=== PATIENT | female | born 1990 | race Caucasian/White ===

== ENCOUNTER → 2016-09-01 | Outpatient (CLI) | payer OTHER ==
[2016-09-01 17:43] LABS: BILIRUBIN,URINE NEGATIVE (NEG); COLOR,URINE YELLOW; GLUCOSE, URINE (UA) NEGATIVE (NEG); NITRATE,URINE NEGATIVE (NEG); OCCULT BLOOD,URINE NEGATIVE (NEG); PROTEIN,URINE NEGATIVE (NEG); UROBILINOGEN,URINE 0.2 mg/dL (0.2)
[2016-09-01 17:44] LABS: CLARITY,URINE SLIGHTLY CLOUDY (CLEAR); URINE SAMPLE TYPE VOIDED SPECIMEN
[2016-09-01 17:45] LABS: BACTERIA,URINE MODERATE
== END ==
LOC: MOB LAB 16:25
PROVIDERS: ATTEND Student in an Organized Health Care Education/Training Program
DX: R35.0 Frequency of micturition (principal)
CPT/HCPCS: 81001; 87077; 87088; 87186

== ENCOUNTER 2018-05-26 18:55 | Observation (INO) ==
[2018-05-26 19:19] LABS: Hematocrit [HCT] 38.1 % (37.0-47.0); Hemoglobin [HGB] 12.9 g/dL (12.0-16.0); MEAN CORPUSCULAR HEMOGLOBIN 31.3 PG (27-31); MEAN CORPUSCULAR HGB CONC 33.9 g/dL (33-37); MEAN CORPUSCULAR VOLUME 92.5 FL (81-99); MEAN PLATELET VOLUME 10.5 FL (7.4-12.2); RED BLOOD COUNT 4.12 10^6/uL (4.20-5.40)
[2018-05-26 19:30] LABS: BLOOD UREA NITROGEN 7 mg/dL (7-22); SERUM ALBUMIN 4.2 g/dL (3.5-4.8); Uric Acid 5.1 mg/dl (2.5-6.2)
[2018-05-26 19:32] LABS: CLARITY,URINE CLEAR (CLEAR); COLOR,URINE YELLOW (Y); GLUCOSE, URINE (UA) NEGATIVE (NEG); OCCULT BLOOD,URINE NEGATIVE (NEG); PH,URINE 5.5 (5.0-8.5); PROTEIN,URINE NEGATIVE (NEG); URINE SAMPLE TYPE VOIDED SPECIMEN
[2018-05-26 19:33] LABS: BILIRUBIN,URINE NEGATIVE (NEG); UROBILINOGEN,URINE 0.2 EU/dL (0.2)
[2018-05-26] MEDS ORDERED: CALCIUM CARBONATE 500 MG (TUMS) CHEWABLE TABLET PO PRN (20:04)
[2018-05-26] MEDS ORDERED: Ondansetron ODT Tab 4 MG TAB PO PRN (20:04)
[2018-05-26] MEDS ORDERED: ONDANSETRON 4 MG/2 ML VIAL IVP PRN (20:04)
[2018-05-26] MEDS ORDERED: LIDOCAINE W/ SODIUM BICARB 0.5 ML SYR SUBD PRN (20:04)
--- NOTE | 2018-05-26 20:10 | OB.PROGRES ---
Date of Service: 05/26/18 Time of Service: 20:08 Interval History: 28 yo at 36 3/7 weeks gestation presented to triage with visual disturbances. She was seen in clinic today for her routine visit. Her initial BP in clinic was 138/98, first elevated pressure she has had. On repeat it was 125/88. Gestational HTN labs were drawn and unremarkable, urine pr:cr 0.2. She was given strict return precautions. 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 She went to the nurses station and her BP was 146/98. Unfortunately then hospital's land line is down, she had tried calling and ultimately had her mother in law stop by the ER and ask what to do. She came directly here. Upon arrival her BP was 139/85. She denied LOWERY, RUQ pain, decreased FM, loss of fluid, vaginal bleeding. She was still just feeling off. W hen I walked into the room she reported a wave of this abnormal feeling again with oscillating vision, blue spots. She does have a h/o migraines, does get an aura, but states this is different than she had ever experienced. PMH - hypothyroid course uncomplicated. GBS collected today, pending. Normal 1 hour OGTT. no PSH FH - maternal uncle spina bifida, CVA, HTN, HLD SH - denies etoh, tobacco, illicit drug use. Works at [employer]. Objective - Cervical Exam [place]: uterine irritability Heart Rate: baseline 140, moderate variability, accels, no decels Heart Rate Interpretation Category: Category I - Labs CBC and BMP: 05/26/18 19:19 05/26/18 19:18 - Vital Signs Last Taken Vital Signs: Vital Signs - Last Taken Temperature 98.1 F 05/26/18 18:57 Pulse Rate 75 05/26/18 18:57 Respiratory Rate 16 05/26/18 18:57 Blood Pressure 139/85 05/26/18 18:57 Pulse Ox 100 05/26/18 18:57 Assessment and Plan - Patient Problems (1) Preeclampsia Current Visit: Yes Status: Acute Code(s): O14.90 - Unspecified pre- eclampsia, unspecified trimester Qualifiers: Trimester: third trimester Qualified Code(s): O14.93 - Unspecified pre- eclampsia, third trimester Support Text: 28 yo at 36 3/7 weeks gestation with preeclampsia (BP 138/98 in clinic this afternoon and 138/96 on L&D, spot urine pr:cr 0.5). Patient with possible severe feature of visual disturbance that comes and goes, described as oscillating with blue dots. No LOWERY, RUQ pain, reflexes 2+. Currently asymptomatic again with normal pressures. Will go ahead and give tylenol 1000 mg to see if this is really a migraine aura and stop her symptoms. Low threshold to start mag for severe features if neuro symtpoms recur. Will pass off to Dr. Mcbride for the evening. GBS pending.
[2018-05-26] MEDS: Lactated Ringers 1,000 ML PRIMARY IV SCH ×2 (20:15→22:15)
[2018-05-26] MEDS ORDERED: ACETAMINOPHEN 325 MG TABLET PO SCH (20:15)
[2018-05-26] MEDS ORDERED: ACETAMINOPHEN 500 MG TABLET PO ONE (20:23)
[2018-05-26] MEDS ORDERED: ACETAMINOPHEN 500 MG TABLET PO SCH (20:30)
[2018-05-27] MEDS ORDERED: ACETAMINOPHEN 500 MG TABLET PO ONE (02:08)
[2018-05-27] MEDS: Lactated Ringers 1,000 ML PRIMARY IV SCH (03:21)
[2018-05-27] MEDS ORDERED: ACETAMINOPHEN 500 MG TABLET PO PRN (04:21)
[2018-05-27 05:29] LABS: Hematocrit [HCT] 34.8 % (37.0-47.0); Hemoglobin [HGB] 11.4 g/dL (12.0-16.0); MEAN CORPUSCULAR HEMOGLOBIN 30.5 PG (27-31); MEAN CORPUSCULAR HGB CONC 32.8 g/dL (33-37); MEAN PLATELET VOLUME 10.4 FL (7.4-12.2); RED BLOOD COUNT 3.74 10^6/uL (4.20-5.40)
[2018-05-27 05:50] LABS: BLOOD UREA NITROGEN 5 mg/dL (7-22); BUN/CREATININE RATIO 8.33 (6-20); SERUM ALBUMIN 3.2 g/dL (3.5-4.8); Uric Acid 5.4 mg/dl (2.5-6.2)
[2018-05-27] MEDS ORDERED: Prenatal Multivitamin Tab 1 TAB TAB PO SCH (09:00)
[2018-05-27] MEDS: BETAMET ACET/BETAMET NA PH 6 MG/1 ML - 5 ML IM SCH (09:58)
--- NOTE | 2018-05-27 09:59 | DI ---
US OB Biophys Profile w/NST,05/27/2018 9:23 AM: Clinical History: Preeclampsia Previous Exam: March 01, 2018 Findings: Multiple transabdominal grayscale and color Doppler sonographic images are obtained through the pelvi s and demonstrate a single live intrauterine gestation in vertex presentation. Detected Doppler heart tones measure 153 beats per minute. Amniotic fluid index measures 16.1 cm. There is normal tone and normal motion. Biophysical profile measured 8/8. Impression: Single live intrauterine gestation with a normal biophysical profile (8/8).
--- NOTE | 2018-05-27 10:01 | DI ---
US OB , Limited,05/27/2018 9:19 AM: Clinical History: Preeclampsia. Previous Exam: None at this facility. Findings: Images are obtained as part growth survey demonstrating a biparietal diameter, head circumferen ce, abdominal circumference and femur length corresponding with an estimated gestational age of 39 we eks 2 days. This is 2 weeks 5 days ahead of schedule. The abdominal circumference measured at greater than the 98th percentile. Estimated weight is 3767 g (98th percentile). Impression: A single live intrauterine gestation with size greater than dates.
--- NOTE | 2018-05-27 18:21 | OB.PROGRES ---
Date of Service: 05/27/18 Time of Service: 18:18 Interval History: Did have an episode of "slowed vision" that passed quickly. BPs have been ok though through the day. Abdominal pain is resolved. BPP earlier 01/05. EFW 98%ile. Objective - Cervical Exam Cervical Exam: cl/thick/-4 Heart Rate Interpretation Category: Category I - Labs CBC and BMP: 05/27/18 04:22 05/27/18 04:22 - Vital Signs Last Taken Vital Signs: Vital Signs - Last Taken Temperature 98.2 F 05/27/18 17:00 Pulse Rate 92 05/27/18 17:00 Respiratory Rate 18 05/27/18 17:00 Blood Pressure 131/79 05/27/18 17:00 Pulse Ox 98 05/27/18 17:00 Assessment and Plan - Patient Problems (1) Preeclampsia Current Visit: Yes Status: Acute Code(s): O14.90 - Unspecified pre- eclampsia, unspecified trimester Qualifiers: Trimester: third trimester Qualified Code(s): O14.93 - Unspecified pre- eclampsia, third trimester Support Text: Awaiting 24 hour urine protein Plan for 2nd beta methasone dose tomorrow morning Likely induction at 37 weeks if no severe features Intermittent monitoring through the night
[2018-05-27 18:35] VITALS: O2SAT 98
[2018-05-27 20:02] LABS: 24 HOUR URINE TOTAL VOLUME 3625 ML
[2018-05-28 08:57] LABS: Hematocrit [HCT] 35.4 % (37.0-47.0); Hemoglobin [HGB] 12.2 g/dL (12.0-16.0); MEAN CORPUSCULAR HGB CONC 34.5 g/dL (33-37); MEAN CORPUSCULAR VOLUME 92.9 FL (81-99); MEAN PLATELET VOLUME 10.5 FL (7.4-12.2); RED BLOOD COUNT 3.81 10^6/uL (4.20-5.40)
[2018-05-28 09:04] VITALS: RESP 16
[2018-05-28 09:07] VITALS: BP 107/59; TEMP 98
[2018-05-28 09:16] LABS: BLOOD UREA NITROGEN 4 mg/dL (7-22); BUN/CREATININE RATIO 6.66 (6-20); SERUM ALBUMIN 3.8 g/dL (3.5-4.8); Uric Acid 5.7 mg/dl (2.5-6.2)
--- NOTE | 2018-05-28 09:24 | OB.PROGRES ---
Date of Service: 05/28/18 Time of Service: 09:19 Interval History: 28 yo at 36 5/7 weeks gestation. Denies any concerns this morning. No LOWERY, visual disturbances. She did get some rest last night. Objective - Cervical Exam Heart Rate Interpretation Category: Category I - Labs CBC and BMP: 05/28/18 08:50 05/27/18 04:22 Additional Lab Results: 05/27/18 19:30 U Tot Protein 24h, Calc 543 H - Vital Signs Last Taken Vital Signs: Vital Signs - Last Taken Temperature 98 F 05/28/18 09:00 Pulse Rate 79 05/28/18 09:00 Respiratory Rate 16 05/28/18 09:00 Blood Pressure 107/59 05/28/18 09:00 Pulse Ox 98 05/28/18 09:00 Assessment and Plan - Patient Problems (1) Preeclampsia Current Visit: Yes Status: Acute Code(s): O14.90 - Unspecified pre- eclampsia, unspecified trimester Qualifiers: Trimester: third trimester Qualified Code(s): O14.93 - Unspecified pre- eclampsia, third trimester Support Text: 28 yo at 36 5/7 weeks gestation who presented on evening with visual disturbances which have since resolved. She had elevated pressures in the clinic earlier that day and again at presentation to the hospital. She did have a 24 hour urine protein that came back at 543mg last night. She is currently asymptomatic. Without current severe features we will plan to start her cervical ripening on Wednesday evening. She will get her second dose of betamethasone at 10 am today. She is amenable to staying in town (as they live 2 hours away in [place]), her and her will stay the night at [facility]. Plan to return tomorrow evening at 7 pm for cervical ripening. Strict return precautions for LOWERY, visual disturbance, etc. GBS negative
[2018-05-28] MEDS: BETAMET ACET/BETAMET NA PH 6 MG/1 ML - 5 ML IM SCH (10:01)
--- NOTE | 2018-05-28 13:44 | OB.PROGRES ---
Date of Service: 05/27/18 Time of Service: 08:00 Interval History: Patient did well overnight. This morning upon me going in had another brief wave of "slow vision". Also with LOWERY this morning, just given tylenol. Objective - Cervical Exam Cervical Exam: cl/thick/high Heart Rate Interpretation Category: Category I - Labs CBC and BMP: 05/28/18 08:50 05/28/18 08:50 - Vital Signs Last Taken Vital Signs: BP - 94-110/48-68 overnight Assessment and Plan - Patient Problems (1) Preeclampsia Status: Acute Code(s): O14.90 - Unspecified pre-eclampsia, unspecified trimester Qualifiers: Trimester: third trimester Qualified Code(s): O14.93 - Unspecified pre- eclampsia, third trimester Support Text: 28 yo at 36 4/7 weeks gestation with preeclampsia admitted last night for observation. 24 hour urine protein collection in process. She did well overnight but woke up with a LOWERY this morning, waiting to see if it responds to Tylenol. Will go ahead and give steroids as she will likely require induction at 37 weeks gestation. BBP and growth us ordered. Labs remain unremarkable otherwise. GBS pending still.
== END 2018-05-28 10:44 | disposition home or self-care (01) ==
LOC: OBIP 18:55 → OBOP 18:55
PROVIDERS: ADMIT Student in an Organized Health Care Education/Training Program; ATTEND Student in an Organized Health Care Education/Training Program

== ENCOUNTER 2018-05-29 17:13 | Inpatient (IN) ==
[2018-05-29] MEDS ORDERED: FAMOTIDINE 20 MG/2 ML VIAL IVP PRN ×2 (17:28)
[2018-05-29] MEDS ORDERED: LIDOCAINE W/ SODIUM BICARB 0.5 ML SYR SUBD PRN (17:28)
[2018-05-29] MEDS ORDERED: CITRIC ACID/SODIUM CITRATE 30 ML CUP PO PRN (17:28)
[2018-05-29] MEDS ORDERED: CefOXitin Inj 2 GM in Sodium Chloride 0.9% 100 ML IV PRN (17:28)
[2018-05-29] MEDS ORDERED: Carboprost Inj 250 MCG/ML AMP IM PRN (17:28)
[2018-05-29] MEDS ORDERED: Metoclopramide Inj 10 MG/2 ML VIAL IV PRN (17:28)
[2018-05-29] MEDS ORDERED: MISOPROSTOL 200 MCG TABLET RECTAL PRN (17:28)
[2018-05-29] MEDS ORDERED: fentaNYL Inj 100 MCG/2 ML VIAL IV PRN (17:28)
[2018-05-29] MEDS ORDERED: ONDANSETRON 4 MG/2 ML VIAL IVP PRN (17:28)
[2018-05-29] MEDS ORDERED: OXYTOCIN 10 UNIT/1 ML IM PRN (17:28)
[2018-05-29] MEDS ORDERED: Lidocaine 1% 10 MG/ML - 20 ML VIAL SUBCUT PRN (17:28)
[2018-05-29] MEDS ORDERED: CALCIUM CARBONATE 500 MG (TUMS) CHEWABLE TABLET PO PRN (17:28)
[2018-05-29] MEDS ORDERED: METHYLERGONOVINE MALEATE 0.2 MG/1 ML VIAL IM PRN (17:28)
[2018-05-29] MEDS ORDERED: TERBUTALINE SULFATE 1 MG/1 ML SDV SUBCUT PRN (17:28)
[2018-05-29] MEDS ORDERED: Oxytocin 20 Units + LR 20 UNIT/1,000 ML BAG IV SCH (17:30)
[2018-05-29] MEDS ORDERED: Naloxone Inj 0.01 MG in Sodium Chloride 0.9% vial 1 ML IVP PRN (17:43)
[2018-05-29] MEDS ORDERED: Nalbuphine Inj 20 MG/ML Ampule IVP PRN (17:43)
[2018-05-29] MEDS ORDERED: BUTORPHANOL TARTRATE 2 MG/1 ML VIAL IVP PRN (17:43)
[2018-05-29] MEDS ORDERED: ePHEDrine Inj 50 MG/ML AMP IVP PRN (17:43)
[2018-05-29] MEDS ORDERED: LIDOCAINE HCL 2 % 10 ML JELLY URO-JECT TOPICAL PRN (17:43)
[2018-05-29] MEDS ORDERED: NALOXONE 0.4 MG/1 ML VIAL IVP PRN (17:43)
[2018-05-29] MEDS ORDERED: Phenylephrine Inj 50 MCG in Sodium Chloride 0.9% vial 0.5 ML IVP PRN (17:43)
[2018-05-29] MEDS ORDERED: diphenhydrAMINE 50 MG/1 ML VIAL IVP PRN (17:43)
[2018-05-29 18:12] LABS: Hemoglobin [HGB] 12.7 g/dL (12.0-16.0); MEAN CORPUSCULAR HEMOGLOBIN 32.2 PG (27-31); MEAN CORPUSCULAR HGB CONC 32.6 g/dL (33-37); MEAN CORPUSCULAR VOLUME 98.7 FL (81-99); MEAN PLATELET VOLUME 10.6 FL (7.4-12.2); RED BLOOD COUNT 3.95 10^6/uL (4.20-5.40)
[2018-05-29 18:25] LABS: BLOOD UREA NITROGEN 13 mg/dL (7-22); BUN/CREATININE RATIO 21.66 (6-20); Uric Acid 5.3 mg/dl (2.5-6.2)
[2018-05-29] MEDS: Lactated Ringers-OB Dept 1,000 ML PRIMARY IV SCH (18:30)
--- NOTE | 2018-05-29 19:27 | OB.PROGRES ---
Date of Service: 05/29/18 Time of Service: 19:19 Interval History: 28 yo at 36 6/7 weeks gestation with preeclampsia here for IOL. course uncomplicated until when she started having elevated pressures and presented with concerns for possible severe features. She was observed for 2 nights. A 24 hour urine protein was collected and 543 mg. She received a course of steroids. She has been staying at [facility] by the hospital as she lives a couple of hours away in [place], [place]. She presented tonight feeling lightheaded again, but feels better now after eating. Most recent growth u/s was Wednesday, Estimated weight is 3767 g (98th percentile). No h/o STIs PMH - hypothyroid, HAs PSH - none FH - Maternal uncle spina bifida, CVAs in mother and grandfather, HTN/HLD - mot her, etoh problems in father and brother SH - Denies etoh, tobacco, illicit drug use Objective - Cervical Exam Cervical Exam: cl/thick/high, posterior and to patient L, firm [place]: no contractions Heart Rate: baseline 130, moderate variability, accels, no decels Heart Rate Interpretation Category: Category I - Labs CBC and BMP: 05/29/18 17:52 05/29/18 17:52 - Vital Signs Last Taken Vital Signs: Vital Signs - Last Taken Temperature 98.2 F 05/29/18 17:56 Pulse Rate 76 05/29/18 17:56 Respiratory Rate 16 05/29/18 17:56 Blood Pressure 124/7 05/29/18 17:56 Pulse Ox 97 05/29/18 17:56 Assessment and Plan - Patient Problems (1) Preeclampsia Current Visit: No Status: Acute Code(s): O14.90 - Unspecified pre-eclampsia, unspecified trimester Qualifiers: Support Text: 28 yo at 36 6/7 weeks gestation with preeclampsia, admitted for cervical ripening. Will start with 25 mcg of cytotec pv, repeat q4h if not britt too frequently GBS negative Close observation [facility]
[2018-05-29] MEDS: Misoprostol Tab 100 MCG TAB VAGINAL SCH (19:30)
[2018-05-29] MEDS ORDERED: ACETAMINOPHEN 500 MG TABLET PO PRN (19:49)
[2018-05-30] MEDS ORDERED: Oxytocin 20 Units + LR 20 UNIT/1,000 ML BAG IV SCH (02:45)
[2018-05-30] MEDS: Misoprostol Tab 100 MCG TAB VAGINAL SCH ×4 (03:24→15:33)
[2018-05-30] MEDS: Lactated Ringers-OB Dept 1,000 ML PRIMARY IV SCH ×2 (06:32→09:56)
--- NOTE | 2018-05-30 08:16 | OB.PROGRES ---
Date of Service: 05/30/18 Time of Service: 08:09 Interval History: 28 yo at 37 0/7 weeks gestation admitted last night for IOL for preeclampsia. She received 1 dose of 25 mcg cytotec pv but then was britt too frequently for another dose. Low dose pitocin was started at 0300. She is feeling her contractions. She does not have a LOWERY, she did not have any further spells of slowed vision/lightheadedness/flushing. Objective - Cervical Exam Cervical Exam: closed/20/-3, posterior, moderate [place]: q2-5 mins Heart Rate: baseline 140, mod fazal, +accels, no decels Heart Rate Interpretation Category: Category I - Labs CBC and BMP: 05/29/18 17:52 05/29/18 17:52 - Vital Signs Last Taken Vital Signs: Vital Signs - Last Taken Temperature 97.6 F 05/30/18 00:00 Pulse Rate 59 L 05/30/18 06:00 Respiratory Rate 18 05/29/18 18:30 Blood Pressure 102/55 05/30/18 06:00 Pulse Ox 98 05/30/18 06:00 Assessment and Plan - Patient Problems (1) Preeclampsia Current Visit: No Status: Acute Code(s): O14.90 - Unspecified pre-eclampsia, unspecified trimester Qualifiers: Support Text: 28 yo at 37 0/7 weeks gestation -IOL for preeclampsia, blood pressures have been good -S/p cytotec 25mcg pv, britt too frequently for more, on pitocin 1 mU for cervical ripening -Attempted cook catheter placement but not successful with getting in past the internal os -GBS negative -Continue close observation
[2018-05-30] MEDS ORDERED: Magnesium Sulfate 4gm (Premix) 4 GM/100 ML BAG IV ONE ×2 (16:58→17:04)
[2018-05-30] MEDS ORDERED: CALCIUM GLUCONATE 100 MG/1 ML - 10 ML IVP PRN (16:58)
[2018-05-30] MEDS ORDERED: Magnesium Sulfate (Premix) 20 GM/500 ML BAG IV SCH (17:00)
[2018-05-30] MEDS ORDERED: CALCIUM GLUCONATE 100 MG/1 ML - 10 ML ONE (17:04)
[2018-05-30] MEDS ORDERED: Magnesium Sulfate (Premix) 20 GM/500 ML BAG IV ONE (17:04)
--- NOTE | 2018-05-30 17:05 | DCSUMMARY ---
Hospitalization Summary Admit Date: 05/29/18 Discharge Date: 05/30/18 Primary Diagnosis:: Preeclampsia with severe feature, 37 0/7 weeks gestation Hospital Course: 28 yo at 37 0/7 weeks gestation admitted last night for induction. She had had an uneventful until when she had an elevated pressure in clinic. After returning to [place], [place] she started feeling lightheaded, flushed, "slowed vision". She was observed over the weekend with rare episodes, given steroids, last dose was Wednesday at 10 am. She returned last night to start her induction. She received 1 dose of 25 mcg cytotec pv, was then britt too frequently to redose. She was on low dose pitocin for cervical ripening until about noon. Unfortunately we had 2 deliveries about that time and both babies are currently in our critical care nursery. We have no further r espiratory support if needed. I discussed the case with MFM Dr. Sims in [place], [place] who felt these episodes sounded like vasospasm from preeclampsia and recommended delivery and starting magnesium. Unfortunately the weather is not optimal for flying her to [place]. I spoke with ALIA Gomez at [facility] who has graciously agreed to accept this patient in transfer. She will transfer via ambulance with an OB nurse monitoring continuously. Exam - Vitals Vital Signs: Vital Signs Temperature 97.6 F Temperature Source Oral Pulse Rate [Pulse Oximeter] 59 Respiratory Rate 18 Blood Pressure [Right Arm] 102/55 Pulse Ox 97 Oxygen Delivery Method Room Air Height 5 ft 5 in Weight 155 lb 8 oz - General General Appearance: No Acute Distress - Head Head Exam: Normal Inspection - Eye Eye Exam: POSITIVE: Normal Appearance - Respiratory Respiratory Exam: POSITIVE: Clear to Auscultation - Bilaterally - Cardiovascular Cardiovascular Exam: POSITIVE: RRR - Neurological Neurological Exam: POSITIVE: Alert, Oriented x 3, Reflexes Normal, Moves All Extremities Equally, No Clonus - Psychiatric Psychiatric Exam: POSITIVE: Normal Affect, Normal Mood - Integumentary Integumentary Exam: POSITIVE: Normal Color Data Peritnent Studies: Selected Entries 05/29/18 17:40 05/29/18 18:30 05/30/18 02:00 Blood Pressure [Right Arm] 118/76 124/74 112/67 05/30/18 03:30 05/30/18 04:30 05/30/18 05:00 Blood Pressure [Right Arm] 101/57 95/56 106/56 05/30/18 05:30 05/30/18 06:00 Blood Pressure [Right Arm] 114/71 102/55 05/28/18 05/29/18 05/29/18 08:50 17:52 17:52 WBC 13.76 H 13.74 H Hgb 12.2 12.7 Hct 35.4 L 39.0 Plt Count 151 164 Sodium 140 Potassium 3.7 L Chloride 109 Carbon Dioxide 21 L Anion Gap 10 BUN 13 Creatinine 0.6 Estimated GFR > 60 BUN/Creatinine Ratio 21.66 H Glucose 84 Calculated Osmolality 288.0 Uric Acid 5.3 Calcium 9.2 Total Bilirubin 0.5 AST 34 ALT 21 Alkaline Phosphatase 102 Lactate Dehydrogenase 535 Total Protein 6.6 Albumin 4.0 Globulin 2.6 Albumin/Globulin Ratio 1.50 Patient Problems - Patient Problem List (1) Preeclampsia Current Visit: No Status: Acute Code(s): O14.90 - Unspecified pre-eclampsia, unspecified trimester Qualifiers: Support Text: 28 yo at 37 0/7 weeks with preeclampsia, plan to transfer to [facility] where critical care is available. Category: Medical
[2018-05-30 18:33] VITALS: TEMP 97.1
[2018-05-30 20:44] VITALS: BP 121/75; RESP 18; O2SAT 100
== END 2018-05-30 17:45 | disposition short-term general hospital (02) | DRG 833 ==
LOC: OBIP 17:13
PROVIDERS: ADMIT Student in an Organized Health Care Education/Training Program; ATTEND Student in an Organized Health Care Education/Training Program